=== PATIENT | female | born 1965 | race Caucasian/White ===

== ENCOUNTER → 2019-04-28 12:43 | Outpatient (CLI) | payer OTHER, SELFPAY ==
--- NOTE | ~2019-04-28 | CT_ITS ---
EXAMINATION: CT chest w con DATE: 04/28/2019 13:20 INDICATION: Lung nodule, history of breast cancer TECHNIQUE: Transaxial computed tomographic images of the chest were obtained after the administration of 75 cc of Omnipaque 350 intravenous contrast. The dose-length product (DLP) was 720.12 mGy-cm. Ite rative reconstruction was used. COMPARISON: 02/20/2019 FINDINGS: There is a stable 9 mm subpleural nodule of the right lower lobe. There is mild dependent a telectasis. No pleural effusion or pneumothorax is identified. Changes in the left breast and left ax illa are consistent with treatment for left breast cancer. Stone is present in the nondistended gallb ladder. There is moderate thoracic spondylosis. IMPRESSION: 1. Stable nodule of the right lower lobe. In a patient with history of malignancy, this remains indet erminate and may be benign or malignant. Comparison with any prior imaging older than what is current ly available (02/20/2019) would be beneficial. Reviewed, dictated and finalized at location A. SPEC IMPRESSION: 1. Stable nodule of the right lower lobe. In a patient with history of malignan cy, this remains indeterminate and may be benign or malignant. Comparison with any prior imaging older than what is currently available (02/20/2019) would be beneficial.
== END ==
PROVIDERS: Visit Provider Internal Medicine Medical Oncology
DX: R91.1 Solitary pulmonary nodule (principal)
CPT/HCPCS: 71260; Q9967